=== PATIENT | male | born 1980 | race Caucasian/White ===

== ENCOUNTER → 2016-08-17 | Outpatient (CLI) | payer MEDICARE, OTHER | LOC: US 12:30 | DX: R80.9 Proteinuria, unspecified (principal) ==

== ENCOUNTER → 2016-08-23 | Outpatient (CLI) | payer MEDICARE, OTHER ==
[2016-08-23 11:10] LABS: HEMOGLOBIN 15.7 gm/dl (14.0-17.5); RED BLOOD COUNT 6.04 M/UL (4.20-5.50); WHITE BLOOD COUNT 7.8 K/UL (4.5-11.0)
[2016-08-23 11:31] LABS: BUN/CREATININE RATIO 14 (0-10)
== END ==
LOC: LAB 10:39
PROVIDERS: Internal Medicine Nephrology
DX: R80.9 Proteinuria, unspecified (principal); I10 Essential (primary) hypertension
CPT/HCPCS: 36415; 80053; 81001; 82043; 82088; 82533; 82570; 83835; 84156; 84244; 84443; 85027

== ENCOUNTER 2016-08-30 12:30 | Emergency (ER) | payer MEDICARE, OTHER | END 2016-08-30 13:35 | disposition home or self-care (01) | LOC: ER1 12:30 | DX: J30.2 Other seasonal allergic rhinitis (principal); E78.5 Hyperlipidemia, unspecified; E11.9 Type 2 diabetes mellitus without complications; N18.9 Chronic kidney disease, unspecified; I12.9 Hypertensive chronic kidney disease with stage 1 through stage 4 chronic kidney disease, or unspecified chronic kidney disease | CPT/HCPCS: 87081; 87880; 99282 ==

== ENCOUNTER → 2016-11-06 | Outpatient (CLI) | payer MEDICARE, OTHER ==
[2016-11-06 13:04] LABS: BUN/CREATININE RATIO 14 (0-10)
== END ==
LOC: LAB 11:35
PROVIDERS: Internal Medicine Nephrology
DX: I10 Essential (primary) hypertension (principal); R31.9 Hematuria, unspecified; R80.9 Proteinuria, unspecified
CPT/HCPCS: 36415; 80053; 82570; 84156; 84244

== ENCOUNTER → 2020-09-16 | Outpatient (CLI) | payer MEDICARE, OTHER ==
[~2020-09-16] MED LIST: CLEOCIN HCL300 MG PO; POLYTRIM EYE DR10 ML EYELF; Voltaren Gel 1 % TOP
[2020-09-16 13:22] LABS: BUN/CREATININE RATIO 15 (0-10)
== END ==
LOC: LAB 12:08
PROVIDERS: Internal Medicine Nephrology
DX: R31.9 Hematuria, unspecified (principal); R80.9 Proteinuria, unspecified
CPT/HCPCS: 36415; 80053; 82570; 84156

== ENCOUNTER 2021-02-04 15:02 | Inpatient (IN) | payer MEDICARE, OTHER ==
[~2021-02-04] VITALS: Ht 175.3 cm; Wt 122.5 kg
[2021-02-04 15:53] LABS: HEMOGLOBIN 14.9 gm/dl (14.0-17.5)
[2021-02-04 16:09] LABS: BUN/CREATININE RATIO 10 (0-10)
[2021-02-04 21:15] LABS: WBC (MANUAL) 1085 (0-200)
[2021-02-04 21:19] LABS: RBC (MANUAL) 0 (0-2000)
[2021-02-04 22:06] LABS: MONONUCLEAR CELLS 0 (75-100); POLYMORPHONUCLEAR % 100 (0-25)
[2021-02-05 02:56] LABS: HEMOGLOBIN 13.7 gm/dl (14.0-17.5); RED BLOOD COUNT 5.65 M/UL (4.20-5.50); WHITE BLOOD COUNT 10.2 K/UL (4.5-11.0)
[2021-02-05 03:15] LABS: BUN/CREATININE RATIO 11 (0-10)
[2021-02-05] MEDS ORDERED: METFORMIN HCL1000 M1 PO (10:41)
[2021-02-05] MEDS ORDERED: HYDRALAZINE HCL50 MG PO (10:42)
[2021-02-05] MEDS ORDERED: LISINOPRIL20 MG PO (10:42)
[2021-02-05] MEDS ORDERED: LOVAZA1 GM PO (10:43)
[2021-02-05] MEDS ORDERED: HYDROCODON-ACE1 EAC6 PO (10:43)
[2021-02-06 04:15] LABS: BUN/CREATININE RATIO 14 (0-10)
[2021-02-06 14:03] LABS: HEMOGLOBIN 13.8 gm/dl (14.0-17.5); RED BLOOD COUNT 5.55 M/UL (4.20-5.50); WHITE BLOOD COUNT 8.8 K/UL (4.5-11.0)
[2021-02-07 10:42] LABS: HEMOGLOBIN 13.5 gm/dl (14.0-17.5); RED BLOOD COUNT 5.49 M/UL (4.20-5.50); WHITE BLOOD COUNT 6.7 K/UL (4.5-11.0)
[2021-02-07 11:06] LABS: BUN/CREATININE RATIO 15 (0-10)
[2021-02-08 03:32] LABS: HEMOGLOBIN 13.6 gm/dl (14.0-17.5); RED BLOOD COUNT 5.52 M/UL (4.20-5.50); WHITE BLOOD COUNT 8.1 K/UL (4.5-11.0)
[2021-02-08 03:45] LABS: BUN/CREATININE RATIO 14 (0-10)
[2021-02-08] MEDS ORDERED: ZYVOX600 MG PO (10:39)
[2021-02-08] MEDS ORDERED: COLCHICINE 0.60.6 MG PO (10:39)
[2021-02-08 14:14] LABS: PROTEIN, BODY FLUID 4.8 g/dL (.); URIC ACID, BODY FLUID 7.7 mg/dL (.)
== END 2021-02-08 15:30 | disposition home or self-care (01) | DRG 554 ==
LOC: ER1 15:02 → CDU 22:54 → M/S 22:54
PROVIDERS: Emergency Medicine; Nurse Practitioner Family; Physician Assistant; ADMIT Internal Medicine
PROC: 0S9C3ZZ Drainage of Right Knee Joint, Percutaneous Approach (ICD-10-PCS; principal; 2021-02-04)
DX: M10.061 Idiopathic gout, right knee (principal); M25.461 Effusion, right knee; I10 Essential (primary) hypertension; Z20.822 Contact with and (suspected) exposure to COVID-19; E66.01 Morbid (severe) obesity due to excess calories; G89.4 Chronic pain syndrome; E11.9 Type 2 diabetes mellitus without complications; E78.5 Hyperlipidemia, unspecified; L40.9 Psoriasis, unspecified; Z79.4 Long term (current) use of insulin; Z88.0 Allergy status to penicillin; Z82.61 Family history of arthritis; Z83.6 Family history of other diseases of the respiratory system; Z68.39 Body mass index [BMI] 39.0-39.9, adult
CPT/HCPCS: 36415; 71045; 73564; 80048; 80053; 80202; 82945; 83036; 83605; 84157; 84550; 85025; 85027; 85610; 85652; 86140; 87040; 87070; 93971; 99285; G0378; J0696; J1644; J1885; J3370; J7070; U0002

== ENCOUNTER → 2021-09-09 | Outpatient (CLI) | payer MEDICARE, OTHER ==
[~2021-09-09] MED LIST changes: +COLCHICINE 0.60.6 MG PO; +HYDRALAZINE HCL50 MG PO; +HYDROCODON-ACE1 EAC6 PO; +LISINOPRIL20 MG PO; +LOVAZA1 GM PO; +METFORMIN HCL1000 M1 PO; +ZYVOX600 MG PO
== END ==
LOC: US 09:30
DX: K76.0 Fatty (change of) liver, not elsewhere classified (principal)
CPT/HCPCS: 76705

== ENCOUNTER → 2021-09-21 | Outpatient (CLI) | payer MEDICARE, OTHER ==
[2021-09-21 14:01] LABS: BUN/CREATININE RATIO 14 (0-10)
== END ==
LOC: LAB 13:00
PROVIDERS: Internal Medicine Nephrology
DX: R80.9 Proteinuria, unspecified (principal); E87.1 Hypo-osmolality and hyponatremia
CPT/HCPCS: 36415; 80053; 82436; 82570; 83935; 84133; 84156; 84300; 84443

== ENCOUNTER → 2022-02-09 | Outpatient (CLI) | payer MEDICARE, OTHER | LOC: EXRD 01-25 13:00 | DX: R80.9 Proteinuria, unspecified (principal); K76.0 Fatty (change of) liver, not elsewhere classified | CPT/HCPCS: 76775 ==

== ENCOUNTER → 2022-02-22 | Outpatient (CLI) | payer MEDICARE, OTHER ==
[2022-02-22 12:26] LABS: BUN/CREATININE RATIO 12 (0-10)
== END ==
LOC: LAB 11:31
PROVIDERS: Internal Medicine Nephrology
DX: R80.9 Proteinuria, unspecified (principal)
CPT/HCPCS: 36415; 80053; 82570; 84156